=== PATIENT | male | born 1955 | race African-American/Black ===

== ENCOUNTER 2016-09-01 15:20 | Observation (INO) | payer OTHER ==
[2016-09-01] MEDS ORDERED: NS 0.9% 1000 ML* 1,000 ML IV ONE (15:49)
[2016-09-01 16:07] LABS: Hematocrit 39 % (42-52); Hemoglobin 12.9 g/dl (14.0-18.0); Mean Corpuscular HGB Conc 33 g/dl (31-36); Mean Corpuscular Hemoglobin 28 pg (27-31); Mean Corpuscular Volume 85 fL (80-94); Mean Platelet Volume 8 um3 (7.4-10.4); Red Blood Count 4.57 10^6/ul (4.0-5.4); Red Cell Distribution Width 14 % (10.5-15); White Blood Count 3.8 10^3/ul (3.5-10.8)
--- NOTE | 2016-09-01 16:20 | ED ---
HPI Chest Pain - HPI Summary HPI Summary: Patient EBENEZER is a 61yo male with a history of CAD who is sent here by [address] [place] [address] for throbbing left anterior chest pressure radiating to the neck and throughout the arm. Pain is described as throbbing and more of a discomfort than pain. He feels the pain diffusely throughout the left arm and is intermittent. Pain is usually not worse with exertion and can come about when he is sitting. He had a stent placement last year and states he usually has symptoms similar to this which last only a few seconds to minutes. Today, however, the chest pain was worse with exertion and he decided to say something. His PMHx includes CAD, prostate CA treated with radiation, non-ischemic cardiomyopathy. He is followed by a vp client services from [place] who had reported the patient had never experienced angina before. This was disputed by patient who states he feels "twinges" of chest pain intermittently for several years. He also has had a 1 month history of anxiety since moving from [place] to [address] [place] [address], but denies medications. He has a depression history for which he sees a counselor at [address] [place] [address]. He was given 325 aspirin at [address] [place] [address] and EKG showed sius bradycardia. Vital signs stable prior to arrival. Previous smoker and unknown family history. Denies SOB, N/V/C/D. - History of Current Complaint Chief Complaint: EDChestPainROMI Time Seen by Provider: 09/01/16 15:40 Hx Obtained From: Patient Onset/Duration: Started Hours Ago Timing: Intermittent Initial Severity: Moderate Current Severity: Moderate Pain Intensity: 5 Pain Scale Used: 0-10 Numeric Chest Pain Location: Left Anterior, Left Lateral Chest Pain Radiates: Yes Chest Pain Radiates To:: Arm, Neck Character: Dull/Aching Aggravating Factor(s): Nothing Alleviating Factor(s): Spontaneous Resolution Associated Signs and Symptoms: Positive: Chest Pain, Vision Changes - d/t recent cataract dx. Related History: Similar Episode/Dx as: - previous chest pain - Risk Factors Pulmonary Embolism Risk Factors: Negative TAD Risk Factors: Negative AMI/ACS Risk Factors: Sedentary Lifestyle, Hypertension, Cocaine - Allergy/Home Medications Allergies/Adverse Reactions: Allergies Allergy/AdvReac Type Severity Reaction Status Date / Time No Known Allergies Allergy Verified 09/01/16 15:38 Home Medications: Home Medications Carvedilol TAB* [Coreg TAB*] 12.5 mg PO QAM 09/01/16 [History Confirmed 09/01/16 ] Ergocalciferol CAP* [Drisdol CAP*] 50,000 unit PO Q7D 09/01/16 [History Confirmed 09/01/16] Losartan TAB* [Cozaar TAB*] 25 mg PO BID 09/01/16 [History Confirmed 09/01/16] Omeprazole CAP* [Prilosec CAP* 20 MG] 20 mg PO BID 09/01/16 [History Confirmed 09/01/16] Spironolactone TAB* [Aldactone TAB*] 25 mg PO DAILY 09/01/16 [History Confirmed 09/01/16] PMH/Surg Hx/FS Hx/Imm Hx Previously Healthy: Yes - HTN, CAD, Prostate CA Infectious Disease History: No Infectious Disease History: Denies: Traveled Outside the [place] in Last 30 Days - Social History Occupation: Unemployed Lives: Alone - at [facility] Hx Substance Use: No Substance Use Type: Reports: None Hx Tobacco Use: No Smoking Status (MU): Former Smoker Do You Chew or Dip Tobacco: No Have You Chewed or Dipped Tobacco in the LAST YEAR: No Review of Systems Constitutional: Negative Positive: Blurred Vision ENT: Negative Positive: Palpitations, Chest Pain Respiratory: Negative Gastrointestinal: Negative Positive: no symptoms reported, see HPI, other - PSA 2.2 last visit - denies urinary sxs Musculoskeletal: Negative Skin: Negative Neurological: Negative Positive: Anxious All Other Systems Reviewed And Are Negative: Yes Physical Exam Triage Information Reviewed: Yes Vital Signs On Initial Exam: Initial Vitals Temp Pulse Resp BP Pulse Ox 99 F 56 19 126/71 99 09/01/16 15:38 09/01/16 15:38 09/01/16 15:38 09/01/16 15:38 09/01/16 15:38 Vital Signs Reviewed: Yes Appearance: Positive: Well-Appearing, Well-Nourished Skin: Positive: Warm, Skin Color Reflects Adequate Perfusion, Dry Head/Face: Positive: Normal Head/Face Inspection, Temporal Artery Tenderness Eyes: Positive: Conjunctiva Clear, Other: - anisicoria - not new Neck: Positive: Supple, No Lymphadenopathy Respiratory/Lung Sounds: Positive: Clear to Auscultation, Breath Sounds Present Cardiovascular: Positive: Normal - no carotid bruits appreciated, RRR, Pulses are Symmetrical in both Upper and Lower Extremities Abdomen Description: Positive: Nontender, No Organomegaly, Soft Bowel Sounds: Positive: Present Musculoskeletal: Positive: Normal, Strength/ROM Intact Neurological: Positive: Normal, Sensory/Motor Intact, Alert, Oriented to Person Place, Time, Speech Normal Psychiatric: Positive: Normal AVPU Assessment: Alert - [place] Coma Scale Best Eye Response: 4 - Spontaneous Best Motor Response: 6 - Obeys Commands Best Verbal Response: 5 - Oriented Diagnostics - Vital Signs Vital Signs Temp Pulse Resp BP Pulse Ox 09/01/16 15:38 99 F 56 19 126/71 99 - Laboratory Result Diagrams: 09/01/16 15:45 09/01/16 15:45 Lab Statement: Any lab studies that have been ordered have been reviewed, and results considered in the medical decision making process. Chest Pain Course/Dx - Course Course Of Treatment: Chest xray:FINDINGS: LINES AND TUBES: None. CARDIOMEDIASTINAL SILHOUETTE: The cardiomediastinal silhouette is normal for portable. technique. PLEURA: The costophrenic angles are sharp. No pleural abnormalities are noted. LUNG PARENCHYMA: The lungs are clear. ABDOMEN: The upper abdomen is clear. There is no subphrenic gas. BONES AND SOFT TISSUES: Degenerative changes are noted along the spine. IMPRESSION: NO ACTIVE CARDIOPULMONARY DISEASE. Trop # 1: 0.00. EKG: sinus bradycardia. Labs: All WNL. Patient was given aspirin 325mg at [facility]. Provider spoke with Dr. Horn at 4:45p to inform of patients status. TOLL RELIEF OPERATOR will see patient and admit to floor for observation. Assessment/Plan: Admit to floor. Spoke with Dr. Horn at 4:45p who accepted patient. - Chest Pain Differential Diagnosis/HQI/PQRI: Acute [place], ACS, Angina, Chest Wall - Diagnoses Provider Diagnoses: Chest pain Discharge - Discharge Plan Condition: Stable Disposition: ADMITTED TO [facility] Discharge Disposition Comment: admitted to [facility] Dr. Horn at 4:45pm.
[2016-09-01 16:27] LABS: Albumin 4.1 g/dL (3.2-5.2); BUN/Creatinine Ratio 14.8 (8-20); Calcium 8.9 mg/dL (8.6-10.3); EGFR African American 112.5 (>60); EGFR Non-African American 87.5 (>60); Globulin 2.9 g/dL (2-4); Potassium 4.1 mmol/L (3.5-5.0); Total Bilirubin 0.4 mg/dL (0.2-1.0)
--- NOTE | 2016-09-01 16:40 | RAD ---
HISTORY: Chest pain, pneumonia, CHF COMPARISONS: None VIEWS:1: Single frontal portable view of the chest at 4:01 PM FINDINGS: LINES AND TUBES: None. CARDIOMEDIASTINAL SILHOUETTE: The cardiomediastinal silhouette is normal for portable technique. PLEURA: The costophrenic angles are sharp. No pleural abnormalities are noted. LUNG PARENCHYMA: The lungs are clear. ABDOMEN: The upper abdomen is clear. There is no subphrenic gas. BONES AND SOFT TISSUES: Degenerative changes are noted along the spine. IMPRESSION: NO ACTIVE CARDIOPULMONARY DISEASE.
[2016-09-01 18:22] LABS: HDL Cholesterol 33.5 mg/dL
[2016-09-01] MEDS ORDERED: Morphine INJ* 2 MG/ML 1 ML SYRINGE IV PRN (18:22)
[2016-09-01] MEDS ORDERED: Morphine INJ* 2 MG/ML 1 ML SYRINGE ONE (18:30)
[2016-09-01] MEDS: Losartan TAB* 25 MG PO SCH (20:09)
[2016-09-01] MEDS: Omeprazole CAP* 20 MG PO SCH (20:09)
--- NOTE | 2016-09-01 21:55 | HP ---
HOSPITAL MEDICINE HISTORY AND PHYSICAL: DATE OF ADMISSION: 09/01/16 PRIMARY CARE PHYSICIAN: [facility] ATTENDING PHYSICIAN: Dr. Amisha Pan *(dictation provided by May Albert NP) CHIEF COMPLAINT: Chest pain. HISTORY OF PRESENT ILLNESS: Mr. Villalta is a 61-year-old male with a past medical history of nonischemic cardiomyopathy and hypertension who presents today to the hospital with concern for chest discomfort. Mr. Villalta states he was in his normal state of health when today while at rest at 11 o'clock, he had the sudden onset of discomfort to the left side of his chest. He describes it as a throbbing. He describes being able to feel his heartbeat in his chest. He reports that radiated up into his neck and into his left arm. Later in the day, he had to walk quarter of a mile or more to go to a doctor's appointment to see someone about mental health issue and during that walk, he had more chest pain and shortness of breath. He reported this when he arrived at the appointment and they therefore had him sent to the emergency room for evaluation. He denies any other complaints including nausea, vomiting, and abdominal pain. He states he has been eating and drinking normally. He does have some chronic complaint of pain in his right lower extremity since he had radiation for prostate cancer. In the emergency room, Mr. Villalta had troponin, which was 0 and EKG, which showed no evidence of ischemia. Chest x-ray showed no acute process. PAST MEDICAL HISTORY: 1. Prostate cancer, status post radiation. 2. Nonischemic cardiomyopathy, diagnosed on cardiac catheterization in [address] [facility]. 3. Hypertension. MEDICATIONS: 1. Ergocalciferol 39498 units p.o. q.7 days. 2. Carvedilol 12.5 mg p.o. q.a.m. 3. Losartan 25 mg p.o. b.i.d. 4. Omeprazole 20 mg p.o. b.i.d. 5. Spironolactone 25 mg p.o. daily. ALLERGIES: No known drug allergies. FAMILY HISTORY: The patient reports that he do not know his father, but his mom related to stroke from hypertension. SOCIAL HISTORY: The patient denies alcohol, tobacco, or drug use. He is an inmate at [facility]. REVIEW OF SYSTEMS: A 14-point review of systems was completed with Mr. Villalta and all those not mentioned above are negative. PHYSICAL EXAMINATION GENERAL: Mr. Villalta is lying in bed. He is in no acute distress. He is calm and cooperative with my examination. VITAL SIGNS: Temperature 99, pulse rate 56, respiratory rate 19, O2 saturation 99% on room air, blood pressure 126/71. LUNGS: Clear to auscultation bilaterally with no accessory muscle use and good aeration. HEART: S1, S2. No murmur, rub or gallop and regular. ABDOMEN: Soft and nontender with bowel sounds positive x4. EXTREMITIES: No cyanosis or edema. SKIN: Intact. NEUROLOGIC: He is alert and oriented x3. He moves all extremities equally. There is no facial asymmetry or focal weakness. Extraocular movements are intact. LABORATORY DATA: WBC 3.8, hemoglobin 12.9, hematocrit 39, platelet count 190. INR 1.15. Sodium 133, potassium 4.1, chloride 104, serum bicarbonate 23, BUN 13, creatinine 0.88, glucose 97, lactic acid 1.2, magnesium 2.0, troponin 0.00. Chest x-ray shows no acute process. EKG shows sinus rhythm with a heart rate of approximately 60 with no evidence of ischemia. ASSESSMENT: Mr. Villalta is a 61-year-old with past medical history of hypertension and nonischemic cardiomyopathy who presents today to the hospital with concern for chest discomfort, which radiated into his neck and arm. Plans are for observation in the hospital for the followin. Chest pain: The patient's first troponin and EKG are normal. Plan to repeat troponins x2. He will have telemetry monitoring. He has already received aspirin and will receive that daily. He will go on for a chemical nuclear medicine stress test tomorrow as he reports pain in his lower extremity due to capacity needed for an exercise stress test. I have requested that the patient's records from [facility] regarding his hospitalization there and cardiac catheterization be obtained so we can determine his ejection fraction in those reports. 2. Hypertension. Continue home medications. Blood pressure is well controlled. 3. DVT prophylaxis with early mobility and SCDs. 4. Disposition to telemetry. TIME SPENT: Approximately 60 minutes were spent on admission of this patient, more than half the time was spent with him at the bedside reviewing the events leading up to this hospitalization, performing the physical examination, and reviewing the plan of care. MAY ALBERT NP CC: [facility]* [id number]/[facility] #: [id number] MTDSpike
[2016-09-02] MEDS: Losartan TAB* 25 MG PO SCH (08:26)
[2016-09-02] MEDS: Omeprazole CAP* 20 MG PO SCH (08:26)
[2016-09-02] MEDS ORDERED: Spironolactone TAB* 25 MG PO SCH (09:00)
[2016-09-02] MEDS ORDERED: Aspirin TAB* 325 MG PO SCH (09:00)
[2016-09-02] MEDS ORDERED: Carvedilol TAB* 6.25 MG PO SCH (09:00)
[2016-09-02] MEDS ORDERED: Regadenoson* 0.4 MG/5 ML SYRINGE ONE (10:59)
[2016-09-02 11:54] VITALS: BP 129/73
--- NOTE | 2016-09-02 12:15 | RAD ---
Edited for charges. INDICATION: Chest pain, hypertension. COMPARISON: None. TECHNIQUE: 10.870 mCi of Tc-99m Myoview were administered IV. SPECT images of the heart were obtained. Later on the same day, under the direction of Dr. Luu, the patient was given an IV injection of a pharmacologic stress agent. Subsequently, the patient was given an IV injection of 25.900 mCi Tc-99m Myoview. SPECT images of the heart were obtained and a gated wall motion study was performed. FINDINGS: Gated wall motion images were obtained at stress and demonstrate grossly normal wall motion. The calculated left ventricular ejection fraction is 55 % at stress. Estimated LEFT ventricular end diastolic volume is 142 mL. TID 1.01. Based on review of the attenuation corrected and non corrected images the distribution of radiopharmaceutical within the myocardium on the stress and rest images is within normal limits. No fixed or reversible regions of hypoperfusion evident. IMPRESSION: 1. Elevated LEFT ventricular end-diastolic volume. Normal range LEFT ventricular ejection fraction. 2. No evidence for stress-induced ischemia or presence of an infarct. ASSESSMENT: LOW RISK. Based on imaging criteria from ACC/AHA 2002 Guideline Update for the Management of Patients With Chronic Stable Angina Table 23. Noninvasive Risk Stratification. MTDD
--- NOTE | 2016-09-02 14:20 | PN ---
Subjective Date of Service: 09/02/16 Interval History: Mr. Villalta states that he is feeling well today. He denies chest pain or shortness of breath at the time of my examination. Objective Active Medications: Aspirin (Aspirin Tab*) 325 mg PO DAILY [facility] Carvedilol (Coreg Tab*) 12.5 mg PO QAM [facility] Losartan Potassium (Cozaar Tab*) 25 mg PO BID [facility] Morphine Sulfate (Morphine Inj (Syringe)*) 2 mg IV Q4H PRN Omeprazole (Prilosec Cap*) 20 mg PO BID [facility] Spironolactone (Aldactone Tab*) 25 mg PO DAILY [facility] Vital Signs 09/01/16 09/01/16 09/01/16 17:00 17:02 17:03 Temperature Pulse Rate 53 Respiratory 18 Rate Blood Pressure 114/69 114/71 (mmHg) O2 Sat by Pulse 98 Oximetry 09/01/16 09/01/16 09/01/16 17:30 18:10 18:21 Temperature 97.8 F Pulse Rate 56 56 Respiratory 19 14 14 Rate Blood Pressure 125/76 127/76 (mmHg) O2 Sat by Pulse 99 100 Oximetry 09/01/16 09/01/16 09/01/16 18:36 19:36 19:56 Temperature 98.1 F Pulse Rate 59 Respiratory 14 16 16 Rate Blood Pressure 122/82 (mmHg) O2 Sat by Pulse 100 Oximetry 09/01/16 09/02/16 09/02/16 23:35 03:40 07:25 Temperature 98.5 F 98.2 F 97.6 F Pulse Rate 55 78 52 Respiratory 20 20 14 Rate Blood Pressure 158/65 123/76 117/68 (mmHg) O2 Sat by Pulse 100 100 100 Oximetry 09/02/16 09/02/16 08:00 11:51 Temperature 98.1 F Pulse Rate 56 Respiratory 14 20 Rate Blood Pressure 129/73 (mmHg) O2 Sat by Pulse 100 Oximetry Oxygen Devices in Use Now: None Appearance: Male sitting up in bed in NAD Respiratory: Symmetrical Chest Expansion and Respiratory Effort, Clear to Auscultation Cardiovascular: NL Sounds; No Murmurs; No JVD, No Edema Abdominal: NL Sounds; No Tenderness; No Distention Extremities: No Edema Skin: No Rash or Ulcers Neurological: Alert and Oriented x 3, NL Muscle Strength and Tone Nutrition: Taking PO's Result Diagrams: 09/01/16 15:45 03/30/17 15:45 Assess/Plan/Problems-Billing Assessment: Mr. Villalta is a 61 yo male with a PMH of nonischemic cardiomyopathy who was admitted on 09/01/16 with chest pain. - Patient Problems (1) Chest pain Comment: Trops negative, EKG without evidence of ischemia. Nuc Med stress test read as low risk. (2) Cardiomyopathy Comment: Patient's EF up to 55% with stress during testing today. Appears improved from 2015. Continue home medications. Status and Disposition: Discharge to [facility].
--- NOTE | 2016-09-03 04:34 | DS ---
HOSPITAL MEDICINE DISCHARGE SUMMARY: DATE OF ADMISSION: 09/01/16 DATE OF DISCHARGE: 09/02/16 ATTENDING PHYSICIAN: aNsreen Lynn DO* (dictation provided by May Albert NP) PRIMARY DIAGNOSIS: Chest pain, atypical. SECONDARY DIAGNOSES: 1. Nonischemic cardiomyopathy. 2. Gastroesophageal reflux disease. 3. History of prostate cancer, status post radiation. MEDICATIONS: At the time of discharge are unchanged. They are: 1. Ergocalciferol 50,000 units p.o. q.7 days. 2. Carvedilol 12.5 mg p.o. q.a.m. 3. Losartan 25 mg p.o. b.i.d. 4. Omeprazole 20 mg p.o. b.i.d. 5. Spironolactone 25 mg p.o. daily. HOSPITAL COURSE: Mr. Villalta is a 61-year-old male with past medical history of nonischemic cardiomyopathy, prostate cancer, and hypertension, who presented to the emergency room on 09/01/16 with complaint of chest pain. Please see dictated H and P from myself for complete details. In brief, the patient had a sudden onset of discomfort in the left side of his chest. It radiated into his neck and left arm. It seemed to be exacerbated by activity. His first troponin was negative and his EKG showed no evidence of ischemia. Mr. Villalta was admitted to the hospital. He had troponins repeated x2, all of which was 0.00 and 0.01. He went on for a stress test today, which was read as low risk and actually showed an ejection fraction of 55% at rest, which appears to be an improvement from his previous ejection fraction in 2015, where he had a clear cardiac catheterization. Mr. Villalta is medically stable for discharge to home to continue with his previous medication regimen. DISPOSITION: Home. DIET: Heart healthy. ACTIVITY: As tolerated. FOLLOWUP PLAN: Please followup per routine with [facility] as needed. TIME SPENT: Approximately 60 minutes was spent in the discharge of this patient , more than half of the time was spent with the patient at the bedside reviewing the events leading up to this hospitalization, performing the physical examination, and reviewing my plan of care. MAY ALBERT NP CC: [facility]* [id number]/[facility] #: [id number] ANUJ
== END 2016-09-02 18:53 ==
LOC: EEVIPCON 15:20 → ED 15:20 → MEDTELE 16:46
PROVIDERS: ADMIT Internal Medicine; ATTEND Hospitalist
DX: R07.89 Other chest pain (principal); I42.9 Cardiomyopathy, unspecified; I10 Essential (primary) hypertension; K21.9 Gastro-esophageal reflux disease without esophagitis; R00.1 Bradycardia, unspecified; Z85.46 Personal history of malignant neoplasm of prostate; Z79.899 Other long term (current) drug therapy; Z87.891 Personal history of nicotine dependence; R06.02 Shortness of breath
CPT/HCPCS: 36415; 71010; 78452; 80053; 80061; 82550; 83605; 83735; 83880; 84484; 85025; 85610; 93005; 93017; 96361; 96374; 99284; A9270-GY; A9502; G0378; J2270; J2785